=== PATIENT | male | born 1990 | race Asian ===

== ENCOUNTER 2019-10-11 08:00 | Outpatient (CLI) | payer MEDICAID | END 2019-10-11 23:59 | disposition home or self-care (01) | LOC: COV 08:00 | PROVIDERS: ATTEND Family Medicine | DX: R05 Cough (principal); R50.9 Fever, unspecified | CPT/HCPCS: 81599 ==

== ENCOUNTER 2019-10-11 14:40 | Outpatient (CLI) | payer MEDICAID | END 2019-10-11 14:41 | disposition critical access hospital (66) | LOC: EMS 14:40 | PROVIDERS: ATTEND Surgery | DX: R05 Cough (principal); R50.9 Fever, unspecified; R07.89 Other chest pain; R06.09 Other forms of dyspnea | CPT/HCPCS: A0425; A0429; A0999 ==

== ENCOUNTER 2019-10-11 14:55 | Emergency (ER) | payer MEDICAID ==
--- NOTE | 2019-10-11 15:47 | ED Physician Documentation ---
PD HPI URI - Stated complaint Stated Complaint: C+ COUGH - Chief complaint Chief Complaint: Resp - History obtained from History obtained from: Patient - History of Present Illness Timing - onset: How many weeks ago (2) Timing duration: Weeks (2) Timing details: Gradual onset, Still present Associated symptoms: Fever, Chills, Sweats, Nasal congestion, Rhinorrhea, Sore throat, Dry cough Improves by: Rest, Medication Worsened by: Activity Similar symptoms before: Has not had sx before Recently seen: Not recently seen - Additional information Additional information: Previously well 29-year-old male has developed a fever cough and congestion over the past 2 weeks. Today he went to get tested for coronavirus and when he got home he developed pain in his right chest and increased shortness of breath. He is come to the emergency department for evaluation. He has had fever up to 101.5 today. He has not had lung disease and he has not had to use inhalers previously. Review of Systems Constitutional: reports: Fever, Chills, Myalgias, Fatigue Eyes: denies: Decreased vision Ears: denies: Ear pain Nose: reports: Rhinorrhea / runny nose, Congestion Throat: reports: Sore throat Cardiac: reports: Chest pain / pressure. denies: Palpitations, Pedal edema, Calf pain Respiratory: reports: Dyspnea, Cough GI: denies: Abdominal Pain, Nausea, Vomiting : denies: Dysuria, Frequency Skin: denies: Rash Musculoskeletal: denies: Neck pain, Back pain, Extremity pain PD PAST MEDICAL HISTORY - Allergies Allergies/Adverse Reactions: Allergies Allergy/AdvReac Type Severity Reaction Status Date / Time No Known Drug Allergies Allergy Verified 10/11/19 16:43 PD ED PE NORMAL - Vitals Vital signs reviewed: Yes (Tachycardic and hypertensive) - General General: Alert and oriented X 3, Well developed/nourished, Other (The patient has some latency to execution of motor commands. He answers questions appropriately and completely.) - HEENT HEENT: Atraumatic, PERRL, EOMI, Other (Left TM is inflamed with distortion of the landmarks the right is minimally affected the pharynx shows 2+ tonsils with exudate bilaterally worse on the left than the right) - Neck Neck: Supple, no meningeal sign, No bony TTP - Cardiac Cardiac: No murmur, Other (Tachycardia to 130) - Respiratory Respiratory: No respiratory distress (Diminished breath sounds bilaterally with rhonchi bilaterally), Other - Abdomen Abdomen: Soft, Non tender - Back Back: No CVA TTP, No spinal TTP - Derm Derm: Normal color, Warm and dry, No rash - Extremities Extremities: No deformity, No edema - Neuro Neuro: Alert and oriented X 3, systems technician 2-12 intact, No motor deficit, No sensory deficit, Normal speech Eye Opening: Spontaneous Motor: Obeys Commands Verbal: Oriented GCS Score: 15 - Psych Psych: Normal mood, Normal affect Results - Vitals Vitals: Oxygen O2 Source Nasal cannula - Labs Labs: Microbiology 10/11/19 16:05 Blood Culture - Preliminary Blood NO GROWTH AFTER 1 DAY Laboratory Tests 10/11/19 10/11/19 10/11/19 15:20 15:59 15:59 WBC 18.3 H RBC 3.77 L Hgb 10.9 L Hct 31.9 L MCV 84.6 MCH 28.9 MCHC 34.2 RDW 13.4 Plt Count 200 MPV 10.4 Neut # (Auto) 15.8 H Lymph # (Auto) 1.1 L [place] # (Auto) 1.2 H Eos # (Auto) 0.1 Baso # (Auto) 0.1 Absolute Nucleated RBC 0.00 Nucleated RBC % 0.0 D-Dimer 304.6 H Sodium 134 L Potassium 4.1 Chloride 101 Carbon Dioxide 22 Anion Gap 11.0 BUN 15 Creatinine 1.1 Estimated GFR (MDRD) 79 L Glucose 105 H Lactic Acid Calcium 8.6 Total Bilirubin 1.7 H AST 24 ALT 33 Alkaline Phosphatase 76 Total Protein 7.9 Albumin 3.9 Globulin 4.0 Albumin/Globulin Ratio 1.0 Lipase 21 L Urine Color Urine Clarity Urine pH Ur Specific [place] Urine Protein Urine Glucose (UA) Urine Ketones Urine Occult Blood Urine Nitrite Urine Bilirubin Urine Urobilinogen Ur Leukocyte Esterase Ur Microscopic Review Urine Culture Comments 10/11/19 10/11/19 15:59 17:10 WBC RBC Hgb Hct MCV MCH MCHC RDW Plt Count MPV Neut # (Auto) Lymph # (Auto) [place] # (Auto) Eos # (Auto) Baso # (Auto) Absolute Nucleated RBC Nucleated RBC % D-Dimer Sodium Potassium Chloride Carbon Dioxide Anion Gap BUN Creatinine Estimated GFR (MDRD) Glucose Lactic Acid 1.0 Calcium Total Bilirubin AST ALT Alkaline Phosphatase Total Protein Albumin Globulin Albumin/Globulin Ratio Lipase Urine Color DARK YELLOW Urine Clarity CLEAR Urine pH 6.5 Ur Specific [place] 1.020 Urine Protein TRACE Urine Glucose (UA) NEGATIVE Urine Ketones 40 H Urine Occult Blood NEGATIVE Urine Nitrite NEGATIVE Urine Bilirubin SMALL H Urine Urobilinogen 2 H Ur Leukocyte Esterase NEGATIVE Ur Microscopic Review NOT INDICATED Urine Culture Comments NOT INDICATED - Rads (name of study) Chest Radiology: Prelim report reviewed (Impression: Low lung volumes with mild crowding and mild elevation of right hemidiaphragm. Right basilar opacity may represent a combination of atelectasis and or infectious inflammatory change in the proper clinical setting. Possible small adjacent right pleural effusion.), EMP read indepedently, See rad report PD MEDICAL DECISION MAKING - ED course Complexity details: reviewed results, re-evaluated patient, considered differential, d/w patient ED course: 29-year-old male with URI symptoms has been tested for coronavirus in our tent outside and has worsening symptoms. He has dyspnea and rhonchi on exam and evidence of infiltrate on chest x-ray. He has markedly elevated white blood cell count and otitis and tonsillitis on exam as well. I suspect his infection is bacterial in nature and the patient appears ill. He has a resting tachycardia and I suspect sepsis. His CT scan shows a dense pneumonia with a significant infectious load gas inside the infectious load and in the pelural effusion. Looks like a developing abscess/empyema. Our surgeon here recommends transfer to a facility capable of doing VATS. Mazariegos virus PCR is negative. Departure - Departure Disposition: 02 Transfer Acute Care Hosp Clinical Impression: Parapneumonic effusion Pneumonia Qualifiers: Pneumonia type: due to unspecified organism Laterality: right Lung location: lower lobe of lung Qualified Code(s): J18.9 - Pneumonia, unspecified organism Discharge Date/Time: 10/11/19 22:07
[2019-10-11 15:57] LABS: BASOPHILS # (AUTO) 0.1 10^3/uL (0.0-0.1); BASOPHILS % (AUTO) 0.3 %; EOSINOPHILS # (AUTO) 0.1 10^3/uL (0.0-0.7); EOSINOPHILS % (AUTO) 0.5 %; HGB - HEMOGLOBIN 10.9 g/dL (14.0-18.0); LYMPHOCYTES # (AUTO) 1.1 10^3/uL (1.5-3.5); LYMPHOCYTES % (AUTO) 5.8 %; MEAN CORPUSCULAR HEMOGLOBIN 28.9 pg (27.0-31.0); MEAN CORPUSCULAR HGB CONC 34.2 g/dL (32.0-36.0); MEAN CORPUSCULAR VOLUME 84.6 fL (80.0-94.0); MEAN PLATELET VOLUME 10.4 fL (7.4-11.4); MONOCYTES # (AUTO) 1.2 10^3/uL (0.0-1.0); MONOCYTES % (AUTO) 6.7 %; NEUTROPHILS # (AUTO) 15.8 10^3/uL (1.5-6.6); NEUTROPHILS % (AUTO) 86.2 %; PLT - PLATELET COUNT 200 10^3/uL (130-450); RED BLOOD COUNT 3.77 10^6/uL (4.70-6.10); RED CELL DISTRIBUTION WIDTH 13.4 % (12.0-15.0); WHITE BLOOD COUNT 18.3 x10^3/uL (4.8-10.8)
[2019-10-11 16:27] LABS: ALBUMIN 3.9 g/dL (3.2-5.5); BILIRUBIN,TOTAL 1.7 mg/dL (0.2-1.0); CALCIUM 8.6 mg/dL (8.5-10.3); CREATININE 1.1 mg/dL (0.6-1.2); TOTAL PROTEIN 7.9 g/dL (6.7-8.2)
--- NOTE | 2019-10-11 16:38 | XRAY Report ---
Reason: chest pain Procedure Date: 10/11/2019 Accession Number: [id number] / [id number] Procedure: XR - Chest 1 View X-Ray CPT Code: 02448 Final Report FULL RESULT: EXAM: CHEST RADIOGRAPHY EXAM DATE: 10/11/2019 04:20 PM. CLINICAL HISTORY: Chest pain. COMPARISON: None. TECHNIQUE: 1 view. FINDINGS: Lungs/Pleura: Low lung volumes with mild crowding. Right hemidiaphragm is mildly elevated. Opacity at the right lung base. Possible small right effusion. No pneumothorax. Mediastinum: Cardiac silhouette size appears unremarkable. Other: None. IMPRESSION: Low lung volumes with mild crowding and mild elevation of the right hemidiaphragm. Right basilar opacity may represent a combination of atelectasis and/or infectious/inflammatory change in the proper clinical setting. Possible small adjacent right pleural effusion. RADIA
[2019-10-11] MEDS ORDERED: AZITHROMYCIN INJ 500 MG in SODIUM CHLORIDE 0.9% 250 ML IV STA (16:40)
[2019-10-11] MEDS ORDERED: cefTRIAXone 1 GM in SODIUM CHLORIDE 0.9% MINIBAG 100 ML IV STA (16:40)
[2019-10-11] MEDS ORDERED: ACETAMINOPHEN 325 MG TABLET PO STA (16:40)
[2019-10-11] MEDS ORDERED: SODIUM CHLORIDE 0.9% 1,000 ML IV ONE ×2 (17:18)
[2019-10-11 17:28] LABS: GLUCOSE, URINE (UA) NEGATIVE (NEGATIVE); KETONES,URINE (UA) 40 mg/dL (NEGATIVE); LEUKOCYTE ESTERASE, URINE NEGATIVE (NEGATIVE); NITRITE,URINE NEGATIVE (NEGATIVE); OCCULT BLOOD,URINE NEGATIVE (NEGATIVE); PH,URINE 6.5 PH (5.0-7.5); PROTEIN,URINE TRACE mg/dL (NEGATIVE); UROBILINOGEN,URINE 2 E.U./dL (NORMAL)
[2019-10-11 17:42] LABS: BILIRUBIN,URINE SMALL (NEGATIVE); CLARITY,URINE CLEAR (CLEAR); ICTOTEST,URINE POSITIVE
[2019-10-11] MEDS ORDERED: IOVERSOL 320 100 ML VIAL IVP ONE ×2 (18:09→19:24)
--- NOTE | 2019-10-11 20:04 | CT Report ---
Reason: persistent tachycardia chest pain Procedure Date: 10/11/2019 Accession Number: [id number] / [id number] Procedure: CT - ANGIO CHEST W/WO CPT Code: Final Report FULL RESULT: EXAM: CT ANGIOGRAM CHEST EXAM DATE: 10/11/2019 07:27 PM. CLINICAL HISTORY: Persistent tachycardia chest pain. COMPARISON: CHEST 1 VIEW 10/11/2019 3:57 PM. TECHNIQUE: Routine helical imaging was performed through the chest in the pulmonary arterial phase. IV Contrast: OPTIRAY 320. Reconstructions: Coronal 3-D MIP reconstructions. Sagittal and coronal. In accordance with CT protocol optimization, one or more of the following dose reduction techniques were utilized for this exam: automated exposure control, adjustment of mA and/or KV based on patient size, or use of iterative reconstructive technique. FINDINGS: Upper abdomen: No acute findings. Mediastinum: Right paratracheal lymphadenopathy 1 cm. Subcarinal lymphadenopathy 1.4 cm. Right hilar lymphadenopathy 1.4 cm. Multiple right hilar lymphadenopathy. No thoracic aortic aneurysm or dissection. Normal heart size. No evidence for pulmonary emboli. Mild motion artifact limited. Lungs: Moderate right lower lobe posterior base consolidation measuring 7.4 x 5.3 cm consistent with pneumonia with multiple gas pockets within the consolidation concerning for early abscess within a pneumonia. No rim-enhancing fluid-filled drainable lung abscess is seen. There is a small right posterior pleural effusion and a few gas pockets are seen within the right pleural effusion, see sagittal image 124. A few areas of pleural enhancement are seen adjacent to the right pleural effusion seen posteriorly. These findings are concerning for the lung infection penetrating into the right pleural effusion which now has gas concerning for an early right empyema. Adjacent airspace disease in the right lower lobe. Small right pleural effusion at the right major fissure. Mild patchy hazy reticular opacities are seen in the right middle lobe. Motion artifact limited. IMPRESSION: 1. Moderate right lower lobe posterior base consolidation measuring 7.4 x 5.3 cm consistent with pneumonia with multiple gas pockets within the consolidation concerning for early abscess within a pneumonia. No rim-enhancing fluid-filled drainable lung abscess is seen. There is a small right posterior pleural effusion and a few gas pockets are seen with in the right pleural effusion, see sagittal image 124. A few areas of pleural enhancement are seen adjacent to the right pleural effusion seen posteriorly. These findings are concerning for the lung infection penetrating into the right pleural effusion which now has gas concerning for an early right empyema. Adjacent airspace disease in the right lower lobe. Small right pleural effusion at the right major fissure. Mild patchy hazy reticular opacities are seen in the right middle lobe. Motion artifact limited. 2. Mediastinal and right hilar lymphadenopathy, most likely reactive to pneumonia. 3. No evidence for pulmonary emboli. Mild motion artifact limited. RADIA The call report notification system was initiated by Dr. Cinthia Pedraza at 07:45 PM on 10/11/2019. The above call report findings were discussed with Paolo Cm by Dr. Cinthia Pedraza at 07:49 PM on 10/11/2019.
[2019-10-11] MEDS ORDERED: metroNIDAZOLE 500 MG/100 ML 500 MG/100 ML BAG IV ONE (20:05)
[2019-10-11] MEDS ORDERED: IBUPROFEN 600 MG TABLET PO STA (21:34)
[2019-10-11 21:35] VITALS: BP 150/87
== END 2019-10-11 22:07 | disposition short-term general hospital (02) ==
LOC: EDUNIT# → ED 14:55
DX: J18.9 Pneumonia, unspecified organism (principal); J91.8 Pleural effusion in other conditions classified elsewhere; H66.92 Otitis media, unspecified, left ear; J03.90 Acute tonsillitis, unspecified; R05 Cough; R50.9 Fever, unspecified
CPT/HCPCS: 36415; 71045; 71275; 80053; 81003; 81599; 83605; 83690; 85025; 85379; 87040; 96361; 96365; 96367; 99284; 99285; A9270; Q9967; 81001; 87086

== ENCOUNTER 2019-10-11 21:55 | Outpatient (CLI) | payer MEDICAID | END 2019-10-11 21:56 | disposition short-term general hospital (02) | LOC: EMS 21:55 | PROVIDERS: ATTEND Surgery | DX: J18.9 Pneumonia, unspecified organism (principal); J86.9 Pyothorax without fistula | CPT/HCPCS: A0425; A0426 ==

== ENCOUNTER 2024-01-24 14:57 | Outpatient (CLI) | payer MEDICAID ==
--- NOTE | 2024-01-24 21:17 | Ultrasound Report ---
PROCEDURE: Pelvic Limited INDICATIONS: LOWER ABDOMINAL PAIN TECHNIQUE: Real-time transabdominal scanning was performed of the pelvis, with image documentation. COMPARISON: None. FINDINGS: Focused ultrasound examination of left lower abdominal/pelvic wall shows no fascial defect or herniat ion sac. No soft tissue mass or fluid collection. Other: No free pelvic fluid. IMPRESSION: No hernia is seen in left lower abdominal/pelvic wall. Reviewed by: Adonis Montoya MD on 01/24/2024 9:15 PM PDT Approved by: Adonis Montoya MD on 01/24/2024 9:15 PM PDT Station ID: [id number]
== END 2024-01-24 14:58 | disposition home or self-care (01) ==
LOC: DI 14:57
DX: R10.32 Left lower quadrant pain (principal)